=== PATIENT | male | born 1985 | race Caucasian/White ===

== ENCOUNTER 2017-04-17 17:54 | Emergency (ER) | payer OTHER ==
[2017-04-17 18:55] LABS: BASOPHIL% 0.2 % (0-2.5); EOSINOPHIL# 0.1 X10e3 (0-0.7); EOSINOPHIL% 0.8 % (0.0-7.0); HEMATOCRIT 43.2 % (38.0-50.0); HEMOGLOBIN 14.4 gm/dL (13.0-16.0); LYMPHOCYTE# 0.8 X10e3 (1.0-3.5); LYMPHOCYTE% 7.7 % (17.0-45.0); MEAN CORPUSCULAR HEMOGLOBIN 29.3 PG (28-34); MEAN CORPUSCULAR HGB CONC 33.3 g/dL (30-36); MEAN PLATELET VOLUME 7.2 FL (6.5-11.5); MONOCYTE# 0.7 X10e3 (0-1.0); MONOCYTE% 6.5 % (3.0-12.0); NEUTROPHIL# 8.6 X10e3 (1.5-7.1); NEUTROPHIL% 84.8 % (40-75); PLATELET COUNT 191 X10e3 (140-420); RED BLOOD COUNT 4.92 X10e (3.90-5.60); RED CELL DISTRIBUTION WIDTH 14.1 % (11.0-15.5); WHITE BLOOD COUNT 10.1 X10e3 (4.0-10.5)
[2017-04-17 19:17] LABS: DIFF IND NO
[2017-04-17 19:23] LABS: INR 1.1; PROTHROMBIN TIME (PATIENT) 11.4 SECONDS (10.0-11.7)
[2017-04-17 19:31] LABS: CALCIUM SERUM 8.8 mg/dL (8.4-10.2); GLOM FILT RATE Estimated 101.3 mL/min (>60); POTASSIUM 3.9 mmol/L (3.5-5.1)
== END 2017-04-17 21:20 | disposition home or self-care (01) ==
LOC: CED 17:54
PROVIDERS: Emergency Medicine
DX: F11.129 Opioid abuse with intoxication, unspecified (principal); R79.1 Abnormal coagulation profile; I10 Essential (primary) hypertension; F17.210 Nicotine dependence, cigarettes, uncomplicated
CPT/HCPCS: 36415; 80048; 85025; 85610; 85730; 96374; 99284